=== PATIENT | male | born 1955 | race Caucasian/White ===

== ENCOUNTER 2021-06-04 10:00 | Outpatient (RCR) | payer MEDICARE, SELFPAY ==
[2021-05-14 11:01] VITALS: BP 149/79; PULSE 77
== END 2021-07-01 13:48 | disposition home or self-care (01) ==
LOC: HO.PT 10:00
PROVIDERS: Visit Provider Orthopaedic Surgery Sports Medicine
DX: M17.11 Unilateral primary osteoarthritis, right knee (principal); M22.41 Chondromalacia patellae, right knee
CPT/HCPCS: 97035; 97110; 97140; 97161